=== PATIENT | female | born 1965 | race Two or more races ===

== ENCOUNTER 2024-03-21 13:11 | Emergency (ER) | payer MEDICAID, MEDICARE, OTHER ==
[~2024-03-21] VITALS: Ht 165.1 cm; Wt 84.7 kg
[2024-03-21 14:18] LABS: Basophils # (auto) 0.1 10 ^3/uL (0-0.2); Basophils % (auto) 0.9 % (0.0-2.0); Eosinophils # (auto) 0.6 10 ^3/uL (0-0.8); Eosinophils % (auto) 4.9 % (0.0-7.0); Hematocrit 39.7 % (36.0-46.0); Hemoglobin 13.1 g/dL (12.2-16.2); Lymphocytes # (auto) 2.7 10 ^3/uL (0.4-5.4); Lymphocytes % (auto) 20.5 % (10.0-50.0); Mean Corpuscular Hemoglobin 28.2 pg (28.0-32.0); Mean Corpuscular Hgb Conc. 32.9 g/dL (32.0-36.0); Mean Corpuscular Volume 85.7 fL (80.0-100.0); Monocytes # (auto) 0.8 10 ^3/uL (0-1.3); Monocytes % (auto) 5.8 % (0.0-12.0); Neutrophils # (auto) 8.8 10 ^3/uL (1.6-8.6); Neutrophils % (auto) 67.9 % (37.0-80.0); Nucleated Red Blood Cells % 0.1 %; Platelet Count (auto) 428 10^3/uL (140-450); Red Blood Cells 4.63 10^6/uL (4.0-5.20); Red Cell Distribution Width 15.5 % (11.8-14.3)
[2024-03-21 14:32] LABS: Alanine Aminotransferase 16 U/L (7-40); Albumin 4.6 g/dL (3.2-4.8); Alkaline Phosphatase 61 U/L (46-116); Anion Gap 7 (5-15); Aspartate Aminotransferase 19 U/L (13-40); BUN/Creatinine Ratio 8.9 (10.0-20.0); Bilirubin, Total 0.3 mg/dL (0.2-1.0); Blood Urea Nitrogen 11 mg/dL (9-23); Calcium 9.9 mg/dL (8.7-10.4); Carbon Dioxide 25 mmol/L (20-30); Chloride 110 mmol/L (98-107); Glucose 91 mg/dL (74-106); Potassium 4.2 mmol/L (3.5-5.1); Sodium 142 mmol/L (136-145); Total Protein 7.6 g/dL (5.7-8.2)
[2024-03-21 18:00] VITALS: BP 135/58; PULSE 94; RESP 16; TEMP 98; O2SAT 98
== END 2024-03-21 18:03 | disposition home or self-care (01) ==
LOC: ER 13:11
DX: R06.02 Shortness of breath (principal); H53.8 Other visual disturbances
CPT/HCPCS: 36415; 71046; 80053; 83880; 84484; 85025; 93005